=== PATIENT | female | born 1960 | race Caucasian/White ===

== ENCOUNTER 2019-03-01 09:00 | Emergency (ER) | payer MEDICARE ==
[~2019-03-01] VITALS: Ht 172.7 cm; Wt 69.7 kg
[~2019-03-01 09:00] MED LIST: CLON-527 PO; DESV50TA PO; LAMO25TA62 PO; TRAZ150T78 PO
[2019-03-01 10:12] LABS: CLARITY,URINE CLOUDY (Clear); COLOR,URINE YELLOW (Yellow); GLUCOSE, URINE NEGATIVE (Neg); KETONES,URINE NEGATIVE (Neg); LEUKOCYTE ESTERASE ,URINE TRACE (Neg); NITRITES, URINE NEGATIVE (Neg); OCCULT BLOOD,URINE NEGATIVE (Neg); PH,URINE 5.5 (4.8-8.0); PROTEIN,URINE NEGATIVE (Neg); UROBILINOGEN,URINE 0.2 E.U/dL (0.2-1.0)
[2019-03-01 10:14] LABS: UA COLLECTION TYPE CLN CATCH MIDSTREAM
[2019-03-01] MEDS ORDERED: TETanus/Pertussis (Acell)/Diphther VAC/PF (Tdap-Adult) 0.5ml syringe IM ONE (10:15)
[2019-03-01] MEDS ORDERED: bacitracin 15gm ointment TP ONE (10:15)
[2019-03-01] MEDS ORDERED: LIDOcaine 1% w/epiNEPHrine 1:200,000 30ml vial IM ONE (10:15)
[2019-03-01 10:18] LABS: URINE AMPHETAMINE SCREEN NEGATIVE (Neg); URINE BARBITUATE SCREEN NEGATIVE (Neg); URINE BENZODIAZEPINES SCREEN NEGATIVE (Neg); URINE CANNABINOID SCREEN NEGATIVE (Neg); URINE COCAINE SCREEN NEGATIVE (Neg); URINE METHADONE SCREEN NEGATIVE (Neg); URINE OPIATE SCREEN NEGATIVE (Neg); URINE PHENCYCLIDINE SCREEN NEGATIVE (Neg)
--- NOTE | 2019-03-01 10:30 | NUR ---
saw pt, ua collected, blood drawn.
[2019-03-01 10:31] LABS: HYALINE CASTS 0-3 /LPF (NEGATIVE); MUCUS STRANDS MODERATE /LPF (Neg); SQUAMOUS EPITHELIAL CELL,UR MANY /LPF (FEW)
[2019-03-01 10:32] LABS: BACTERIA,URINE 1+ /HPF (Neg); RBC,URINE 0-2 /HPF (0-2); WBC,URINE 0-4 /HPF (0-4)
[2019-03-01 10:53] LABS: BASOPHILS % (AUTO) 0.3 % (0-1); EOSINOPHILS % (AUTO) 0.6 % (0-6); HEMATOCRIT 35.4 % (35.0-45.0); HEMOGLOBIN 12.1 g/dl (12.0-16.0); LYMPHOCYTES # (AUTO) 1.3 X10'3 (1.1-4.8); LYMPHOCYTES % (AUTO) 17.2 % (21-51); MEAN CORPUSCULAR HEMOGLOBIN 33.4 PG (27.0-31.0); MEAN CORPUSCULAR HGB CONC 34.1 g/dL (33.0-36.5); MEAN CORPUSCULAR VOLUME 98.1 FL (78-98); MONOCYTES # (AUTO) 0.5 X10'3 (0-0.9); MONOCYTES % (AUTO) 6.8 % (2-12); NEUTROPHILS # (AUTO) 5.7 X10'3 (1.8-7.7); NEUTROPHILS % (AUTO) 75.1 % (42-75); PLATELET COUNT 231 X10'3 (140-440); RED BLOOD COUNT 3.61 X10'6 (4.20-5.60); RED CELL DISTRIBUTION WIDTH 12.4 % (11.5-14.5); WHITE BLOOD COUNT 7.6 X10'3 (4.5-11.0)
[2019-03-01 11:07] LABS: ALANINE AMINOTRANSFERASE 23 U/L (12-78); ALBUMIN 3.5 G/DL (3.4-5.0); ALBUMIN/GLOBULIN RATIO 1.2 (1.1-1.5); ALKALINE PHOSPHATASE 56 IU/L (46-116); ANION GAP 6 (8-16); ASPARTATE AMINO TRANSFERASE 15 U/L (10-37); BILIRUBIN,TOTAL 0.2 MG/DL (0.1-1.0); BLOOD UREA NITROGEN 12 MG/DL (7-18); CHLORIDE 108 MMOL/L (99-107); CREATININE 0.92 MG/DL (0.40-0.90); GLUCOSE 105 MG/DL (70-104); SODIUM 142 MMOL/L (135-145); TOTAL CARBON DIOXIDE 27.8 MMOL/L (24-32); TOTAL PROTEIN 6.4 G/DL (6.4-8.2); eGFR 63 ML/MIN
[2019-03-01 11:21] LABS: ETHANOL < 0.010 GM/DL (0.0-0.010)
[2019-03-01] MEDS ORDERED: ibuprofen tablet 400 MG TABLET PO ONE (12:05)
[2019-03-01] MEDS ORDERED: nicotine 14mg patch - 24hr TD ONE (12:15)
--- NOTE | 2019-03-01 12:34 | NUR ---
lacerations to anastasia ac repaired and covered with bandages
[2019-03-01] MEDS ORDERED: IBUP-1986 PO (14:30)
--- NOTE | 2019-03-01 16:30 | NUR ---
PACKET FAXED [facility]
[2019-03-01] MEDS ORDERED: ibuprofen tablet 400 MG TABLET PO PRN (17:30)
--- NOTE | 2019-03-01 18:13 | NUR ---
Declan COURTNEY, evaluating patient.
--- NOTE | 2019-03-01 18:38 | NUR ---
Assumed patient care. Discharge paperwork is written. Patient is alert and oriented X4, W/D, good color. Patient denies S/I at this time. Thought process is linear. Patient is eating dinner. When finish this screen writer will complete patient discharge.
[2019-03-01 18:57] VITALS: BP 111/69
[2019-03-01] MEDS ORDERED: lamoTRIgine 25mg tablet PO SCH (20:00)
[2019-03-01] MEDS ORDERED: clonazePAM 1mg tablet PO SCH (21:00)
[2019-03-02] MEDS ORDERED: DESVENLAFAXINE 50 MG PO SCH (08:00)
[2019-03-02] MEDS ORDERED: traZODone 150mg tablet PO SCH (08:00)
== END 2019-03-01 19:01 ==
LOC: ER 09:01
DX: S41.112A Laceration without foreign body of left upper arm, initial encounter (principal); S41.111A Laceration without foreign body of right upper arm, initial encounter; F32.9 Major depressive disorder, single episode, unspecified; F41.9 Anxiety disorder, unspecified; C7A.00 Malignant carcinoid tumor of unspecified site; Z88.0 Allergy status to penicillin; Z79.899 Other long term (current) drug therapy; X78.8XXA Intentional self-harm by other sharp object, initial encounter; Y93.89 Activity, other specified; Y92.89 Other specified places as the place of occurrence of the external cause; Y99.8 Other external cause status
CPT/HCPCS: 12002; 36415; 80053; 80305; 80320; 81001; 84443; 85025; 90471; 99284; 99285

== ENCOUNTER 2021-07-16 19:52 | Emergency (ER) | payer MEDICARE ==
[~2021-07-16] VITALS: Ht 172.7 cm; Wt 72.7 kg
[~2021-07-16 19:52] MED LIST changes: +DESV50TA; +IBUP-1986 PO; +MELO-82 PO; +METH-233 PO; +OXYC-138 PO
[2021-07-16 19:59] VITALS: BP 114/62
[2021-07-16 20:21] LABS: BASOPHILS # (AUTO) 0.1 X10'3 (0-0.2); BASOPHILS % (AUTO) 0.9 % (0-1); EOSINOPHILS # (AUTO) 0.1 X10'3 (0-0.9); EOSINOPHILS % (AUTO) 1.1 % (0-6); HEMATOCRIT 37.4 % (35.0-45.0); HEMOGLOBIN 12.6 g/dl (12.0-16.0); LYMPHOCYTES # (AUTO) 2.2 X10'3 (1.1-4.8); LYMPHOCYTES % (AUTO) 28.9 % (21-51); MEAN CORPUSCULAR HEMOGLOBIN 33.4 PG (27.0-31.0); MEAN CORPUSCULAR HGB CONC 33.8 g/dL (33.0-36.5); MEAN CORPUSCULAR VOLUME 98.8 FL (78-98); MEAN PLATELET VOLUME 8.3 FL (7.4-10.4); MONOCYTES # (AUTO) 0.6 X10'3 (0-0.9); MONOCYTES % (AUTO) 7.7 % (2-12); NEUTROPHILS # (AUTO) 4.8 X10'3 (1.8-7.7); NEUTROPHILS % (AUTO) 61.4 % (42-75); PLATELET COUNT 228 X10'3 (140-440); RED BLOOD COUNT 3.78 X10'6 (4.20-5.60); RED CELL DISTRIBUTION WIDTH 13.6 % (11.5-14.5); WHITE BLOOD COUNT 7.8 X10'3 (4.5-11.0)
[2021-07-16 20:33] LABS: APTT 27 SECONDS (22-32); D-DIMER 0.24 MG/L FEU (0-0.50)
[2021-07-16 20:44] LABS: ALANINE AMINOTRANSFERASE 19 U/L (12-78); ALBUMIN 3.7 G/DL (3.4-5.0); ALBUMIN/GLOBULIN RATIO 1.2 (1.1-1.5); ALKALINE PHOSPHATASE 69 IU/L (46-116); ANION GAP 14 (8-16); ASPARTATE AMINO TRANSFERASE 12 U/L (10-37); BILIRUBIN,TOTAL 0.2 MG/DL (0.1-1.0); BLOOD UREA NITROGEN 21 MG/DL (7-18); BUN/CREATININE RATIO 17.4 (6.6-38.0); CALCIUM 8.4 MG/DL (8.5-10.1); CHLORIDE 108 MMOL/L (99-107); CREATININE 1.21 MG/DL (0.40-0.90); GLUCOSE 94 MG/DL (70-104); POTASSIUM 3.3 MMOL/L (3.5-5.1); SODIUM 142 MMOL/L (135-145); TOTAL CARBON DIOXIDE 20.4 MMOL/L (24-32); TOTAL PROTEIN 6.7 G/DL (6.4-8.2); eGFR 46 ML/MIN
[2021-07-16] MEDS ORDERED: dexamethasone sod phosphate 10mg/ml inj PO STA (22:47)
[2021-07-16] MEDS ORDERED: PRED20TA PO (22:50)
--- NOTE | 2021-07-16 23:10 | NUR ---
Pt given and understands d/c instructions. Ambulatory with a steady gait.
== END 2021-07-16 23:10 | disposition home or self-care (01) ==
LOC: ER 19:52
DX: J40 Bronchitis, not specified as acute or chronic (principal); Z20.822 Contact with and (suspected) exposure to COVID-19; R06.02 Shortness of breath; R05.9 Cough, unspecified; R09.89 Other specified symptoms and signs involving the circulatory and respiratory systems; F41.9 Anxiety disorder, unspecified; F32.9 Major depressive disorder, single episode, unspecified; F17.210 Nicotine dependence, cigarettes, uncomplicated; Z98.890 Other specified postprocedural states; Z88.0 Allergy status to penicillin; Z79.899 Other long term (current) drug therapy
CPT/HCPCS: 36415; 71045; 80053; 83880; 84145; 84484; 85025; 85379; 85610; 85730; 87635; 93005; 99285; C9803; J1100

== ENCOUNTER 2023-03-28 12:09 | Emergency (ER) | payer MEDICARE ==
[~2023-03-28] VITALS: Ht 172.7 cm; Wt 70.5 kg
[2023-03-28 12:22] VITALS: BP_DIAS 73; RESP 18; TEMP 98.1; O2SAT 100
[2023-03-28] MEDS ORDERED: hyDROXYzine 50 mg/ml injection ***IM only IM ONE (15:55)
[2023-03-28] MEDS ORDERED: hydrOXYzine 25 MG tablet PO ONE (16:20)
[2023-03-28] MEDS ORDERED: acetaminophen 325mg tablet PO ONE (16:25)
[2023-03-28] MEDS ORDERED: amLODIPine 5mg tablet PO ONE (16:25)
[2023-03-28 16:35] VITALS: BP_SYST 169; PULSE 75
== END 2023-03-28 17:36 | disposition home or self-care (01) ==
LOC: ER 12:10
DX: B34.9 Viral infection, unspecified (principal); Z20.822 Contact with and (suspected) exposure to COVID-19; F17.200 Nicotine dependence, unspecified, uncomplicated; Z88.0 Allergy status to penicillin; Z79.899 Other long term (current) drug therapy; Z79.82 Long term (current) use of aspirin; Z98.890 Other specified postprocedural states
CPT/HCPCS: 36415; 87502; 87503; 87811; 99284; Q0177